=== PATIENT | male | born 1985 | race African-American/Black ===

== ENCOUNTER 2018-11-21 18:24 | Emergency (ER) | payer SELFPAY ==
[~2018-11-21] VITALS: Ht 182.9 cm; Wt 74.8 kg
[2018-11-21] MEDS ORDERED: HYDROCODONE/APAP 10MG-325MG TAB PO NR (18:45)
[2018-11-21] MEDS ORDERED: TETANUS/DIPHTHERIA TOX ADULT 0.5 ML SYR IM ONE (18:45)
--- NOTE | 2018-11-21 19:30 | Diagnostic Imaging Report ---
Exam: Left foot 3 views History: Pain Comparison: None. Findings: No fracture or malalignment. Joint spaces preserved. Soft tissue irregularity at the plantar forefoot. No radiopaque foreign body. Impression: No acute osseous abnormality Signed by: Dr. Raghu Baker M.D. on 11/21/2018 7:27 PM
[2018-11-21 20:26] VITALS: BP 137/89
== END 2018-11-21 20:26 | disposition home or self-care (01) ==
LOC: ER 18:24
DX: S91.332A Puncture wound without foreign body, left foot, initial encounter (principal); W26.8XXA Contact with other sharp object(s), not elsewhere classified, initial encounter; Y99.0 Civilian activity done for income or pay
CPT/HCPCS: 90714; 99283